=== PATIENT | female | born 1975 | race Caucasian/White ===

== ENCOUNTER 2022-11-05 00:50 | Day surgery (SDC) | payer OTHER, SELFPAY ==
[2022-10-23 16:02] VITALS: BMI 38.7
[2022-11-05 09:41] VITALS: BP 125/77; PULSE 65; RESP 18; TEMP 36.4; O2SAT 100
--- NOTE | 2022-11-05 10:00 | P.PNAN_ITS ---
Anes - Initial Pre Proc Eval Procedure: Operation Date: 11/05/22 11:00 Proposed Procedures p Screening Colonoscopy - Isaiah Nguyễn MD Date/Time: 11/05/22 10:00 Surgeon: Isaiah Nguyễn MD Pre Op Diagnosis: neoplasm screening Patient Data Age: 46 Gender: F Height: 1.78 m Weight: 122.4 kg Last Vital Signs Temp 36.4 C 11/05/22 09:41 Pulse 65 11/05/22 09:41 Resp 18 11/05/22 09:41 BP 125/77 11/05/22 09:41 Pulse Ox 100 11/05/22 09:41 O2 Del Method Room Air 11/05/22 09:41 Allergies Allergy/AdvReac Type Severity Reaction Status Date / Time No Known Allergies Allergy Verified 11/05/22 09:41 Home Medications Medication Instructions Recorded Confirmed Type albuterol sulfate 90 mcg/actuation 1 inh inhalation Q4H PRN Shortness 08/08/20 10/23/22 History aerosol inhaler Of Breath montelukast 10 mg tablet 10 mg PO HS 08/08/20 10/23/22 History (Singulair) cetirizine 10 mg tablet 10 mg PO DAILY 10/23/22 10/23/22 History duloxetine 60 mg capsule,delayed 60 mg PO BID 10/23/22 10/23/22 History release pantoprazole 40 mg tablet,delayed 40 mg PO PRN PRN Acid Reflux 10/23/22 10/23/22 History release topiramate 50 mg tablet 50 mg PO DAILY 10/23/22 10/23/22 History Patient hx anesthesia problems: none Family hx anesthesia problems: none Results Review: All pre-operative results and documents have been reviewed as part of the pre- operative evaluation. [facility] Past Medical History Medical History Depression Seasonal allergic rhinitis Surgical History Surgical History Bariatric surgery status H/O LEEP S/P dilation and curettage Tubal ligation status Family History Family History Grandparent Carcinoma of colon Father Family history of diabetes mellitus in first degree relative Social History Social History Smoking status: Never smoker Second hand tobacco smoke exposure: No Alcohol intake: current Substance use: never Substance use type: does not use Living arrangements: with family Spiritual care concerns: No Anes - Eval Final PreProcedure Day of Procedure 11/05/22 10:00 Patient weight: obese Heart: regular rate and rhythm Lungs: clear to auscultation and normal air movement Airway: Mallampati scale class II Neurological: alert and oriented Last oral intake: >/= 8 hours ASA classification: III Emergent: no Anesthetic plan: proceed Anesthesia type and monitoring: general GIVS Results Review: All pre-operative results and documents have been reviewed as part of the pre- operative evaluation. Informed Consent: The patient's anesthetic plan and its attendant risks and benefits were discussed with the patient/family/POA. Questions were solicited and answers provided to the satisfaction of the patient/family/POA.
[2022-11-05] MEDS: LACTATED RINGERS 1,000 ML 150 ML IV CONT (10:03)
--- NOTE | 2022-11-05 10:21 | PM.HPGS ---
History of Present Illness History of Present Illness Consent: Risks, benefits, and alternatives have been discussed and questions answered. Patient agrees to proceed with procedure. Chief complaint: neoplasm screening Narrative: Kanika Garcia is a 46 year old female here for first screening colonoscopy Review of Systems Constitutional: Constitutional: Denies headache(s) and Denies weakness Eyes: Eyes: Denies blurry vision ENT: Reports Normal hearing present, Denies headache(s) and Denies neck pain Cardiovascular: Cardiovascular: Denies chest pain and Denies dyspnea Respiratory: Respiratory: Denies dyspnea Gastrointestinal: Gastrointestinal: Reports no additional gastrointestinal complaints Genitourinary: Genitourinary: Denies dysuria Musculoskeletal: Musculoskeletal: Denies neck pain Integumentary/Breasts: Skin/Breast: Denies dry skin Neurologic: Reports Normal hearing present, Denies headache(s) and Denies weakness Psychiatric: Psychiatric: Denies anxiety Endocrine: Endocrine: Denies change in body appearance Hematologic/Lymphatic: Hematologic/Lymphatic: Denies easy bleeding Allergic/Immunologic: Allergic/Immunologic: Denies urticaria PMFSH Past Medical History Medical History (Updated 11/05/22 @ 10:22 by Isaiah Nguyễn MD) Colon cancer screening Depression Seasonal allergic rhinitis Surgical History Surgical History Bariatric surgery status H/O LEEP S/P dilation and curettage Tubal ligation status Family History Family History Grandparent Carcinoma of colon Father Family history of diabetes mellitus in first degree relative Social History Social History Smoking status: Never smoker Second hand tobacco smoke exposure: No Alcohol intake: current Substance use: never Substance use type: does not use Living arrangements: with family Spiritual care concerns: No Meds Home Medications and Allergies Home Medications Medication Instructions Recorded Confirmed Type albuterol sulfate 90 mcg/actuation 1 inh inhalation Q4H PRN Shortness 08/08/20 10/23/22 History aerosol inhaler Of Breath montelukast 10 mg tablet 10 mg PO HS 08/08/20 10/23/22 History (Singulair) cetirizine 10 mg tablet 10 mg PO DAILY 10/23/22 10/23/22 History duloxetine 60 mg capsule,delayed 60 mg PO BID 10/23/22 10/23/22 History release pantoprazole 40 mg tablet,delayed 40 mg PO PRN PRN Acid Reflux 10/23/22 10/23/22 History release topiramate 50 mg tablet 50 mg PO DAILY 10/23/22 10/23/22 History Allergies Allergy/AdvReac Type Severity Reaction Status Date / Time No Known Allergies Allergy Verified 11/05/22 09:41 Vital Signs Vital Signs - 24 hr 11/05/22 09:41 Temperature 97.6 F Pulse Rate 65 Respiratory Rate 18 Blood Pressure 125/77 Pulse Oximetry 100 Oxygen Delivery Room Air Exam Const: General: comfortable and no acute distress HENMT: Face/Nose/Sinus: Normal nares present Eyes: General: appearance normal, both eyes and all related structures Neck: Neck: no JVD Resp: Auscultation: clear to auscultation bilaterally Cardio: Rate: regular rate Rhythm: regular rhythm GI: Inspection: non-distended GI Palp: Yes Soft to palpation Skin: General skin exam: normal color Neuro: General: gait normal Speech: normal speech Extrem: General: normal to inspection Psych: Mental Status: mental status grossly normal Assessment and Plan Assessment and plan (1) Colon cancer screening: Code(s): Z12.11 - Encounter for screening for malignant neoplasm of colon Status: Acute Assessment and Plan: colonoscopy
[2022-11-05 10:45] VITALS: BP 113/67; PULSE 65; RESP 18; O2SAT 100
[2022-11-05 10:55] VITALS: BP 116/67; PULSE 60; RESP 16; O2SAT 100
[2022-11-05 11:05] VITALS: BP 123/77; PULSE 65; RESP 16; O2SAT 100
== END 2022-11-05 11:16 | disposition home or self-care (01) ==
PROVIDERS: Visit Provider Internal Medicine Gastroenterology
PROC: 0DJD8ZZ Inspection of Lower Intestinal Tract, Via Natural or Artificial Opening Endoscopic (ICD-10-PCS; CPT 45378; principal; 2022-11-05 11:00)
DX: Z12.11 Encounter for screening for malignant neoplasm of colon (principal); K64.8 Other hemorrhoids; Z79.51 Long term (current) use of inhaled steroids; F32.A Depression, unspecified; Z98.84 Bariatric surgery status; E66.9 Obesity, unspecified; Z68.38 Body mass index [BMI] 38.0-38.9, adult
CPT/HCPCS: 45378; J2704; J7120

== ENCOUNTER 2024-04-13 15:41 | Outpatient (CLI) | payer OTHER, SELFPAY ==
--- NOTE | ~2024-04-13 | US_ITS ---
US pelvic complete w TV Ordering provider: Elsa Bryant APRN History: . R87.764 - Unspecified abnormal cytological findings in sp... . Comparison: None. Technique: Transabdominal and endovaginal ultrasound of the pelvis (Doppler ultrasound interrogation techniques used as needed for this exam.) FINDINGS: CERVIX: Normal. UTERUS: Measures 6.7x 4x 5.3 cm in length which is within normal limits and is anteverted. No myomet rial masses. ENDOMETRIUM: Normal in thickness measuring 5 mm. (Note: the premenopausal endometrium may measure up to 16 mm when in the secretory phase.) No endometrial masses, cysts or fluid. CUL DE SAC: No free fluid. RIGHT OVARY: Normal in size measuring 1.8x 2.7x 1.7 cm. Normal echotexture. Doppler vascular flow pre sent. LEFT OVARY: Normal in size measuring 2.5x 1.6x 2.4 cm. Normal echotexture. Doppler vascular flow pres ent. ADNEXA: Normal. No mass. IMPRESSION: normal pelvic ultrasound. Reviewed, dictated and finalized at location A. IMPRESSION: normal pelvic ultrasound.
== END 2024-04-13 15:42 ==
LOC: MICIMG 15:41
PROVIDERS: PCP Nurse Practitioner Obstetrics & Gynecology; Visit Provider Nurse Practitioner Obstetrics & Gynecology
DX: R87.619 Unspecified abnormal cytological findings in specimens from cervix uteri (principal)
CPT/HCPCS: 76830; 76856

== ENCOUNTER 2024-06-19 04:35 | Day surgery (SDC) | payer OTHER, SELFPAY ==
[2024-06-11 10:53] VITALS: BMI 39.0
--- NOTE | 2024-06-11 10:59 | PC.NURSE ---
Report to the Outpatient Waiting Room, entrance under the green pavilion located off [facility], at time _0600_ on date _[id number]_. Planned Procedure Time: _0730_.? Time changes happen often and if your time is changed the preop area will call you the afternoon before. - You and your visitor will be asked to self-screen and do not enter if you have any COVID symptoms. Please call surgeon if you need to reschedule. - A mask is optional within the hospital at this time. Patients may have clear liquids (water, carbonated beverages, clear teas, apple juice) until 3 hours prior to surgery with a maximum of 20 ounces. - No food from midnight until time of surgery and no smoking Take only the following medications with a SIP of water on the morning of surgery: ____Breo, Rexulti and Topiramate DO NOT STOP ANY OF YOUR OTHER PRESCRIPTION MEDICATIONS PRIOR TO SURGERY EXCEPT THE FOLLOWING Medications to discontinue per physician None Date to take last dose Please no make-up, nail cambodian, hairspray, perfume, deodorant, or body powder the day of surgery.? No jewelry (including any body piercings) or valuables the day of surgery, leave them at home.? Please take a shower or bath the night before, or the morning of, surgery with an antibacterial soap.? Wear comfortable, loose fitting clothing.? - Jewelry must be removed prior to entering the operating room.? Rings and piercings that are not removed may be cut off. - The hospital will not accept responsibility for valuables.? - Please leave all valuables, including medications, at home the day of surgery. If you are going home after surgery, a licensed diesel truck driver must drive you home.? - NO public transportation without another adult if you receive anesthesia. - We recommend that an adult stay with you for 24 hours following discharge. - We also recommend that you do not drive, make important decision, drink alcoholic beverages, or take any drugs that were not prescribed by your health care provider for at least 24 hours after your discharge time. Follow any additional instructions given to you from your surgeon. Telephone instructions given to __Kanika___and asked if any additional questions and then verbalized understanding. Patient advised to call surgeon office or pre surgery nurse liaison [phone] if any additional questions.
[2024-06-19] MEDS: LACTATED RINGERS 1,000 ML 30 ML IV CONT ×2 (06:15→08:00)
[2024-06-19 06:30] VITALS: BP 121/75; PULSE 62; RESP 18; TEMP 36.6; O2SAT 97
[2024-06-19] MEDS: ACETAMINOPHEN 500 MG TABLET 1000 MG PO (06:30)
--- NOTE | 2024-06-19 06:51 | WPDANESEPPF ---
Anes - Initial Pre Proc Eval Procedure: Operation Date: 06/19/24 07:30 Proposed Procedures p Hysteroscopy, Dilation and Curettage with Removal of Any Endometrial Lesions if Necessary - Benny Ahmadi MD Date/Time: 06/19/24 06:51 Surgeon: Benny Ahmadi MD Pre Op Diagnosis: endometrial polyp Patient Data Age: 48 Gender: F Height: 1.78 m Weight: 123.4 kg Allergies Allergy/AdvReac Type Severity Reaction Status Date / Time No Known Allergies Allergy Verified 06/11/24 10:51 Home Medications Medication Instructions Recorded Confirmed Type albuterol sulfate 90 mcg/actuation 1 inh inhalation Q4H PRN Shortness 08/08/20 06/14/24 History aerosol inhaler Of Breath montelukast 10 mg tablet 10 mg PO HS 08/08/20 06/14/24 History (Singulair) cetirizine 10 mg tablet 10 mg PO DAILY 10/23/22 06/14/24 History duloxetine 60 mg capsule,delayed 60 mg PO BID 10/23/22 06/14/24 History release pantoprazole 40 mg tablet,delayed 40 mg PO PRN PRN Acid Reflux 10/23/22 06/14/24 History release topiramate 50 mg tablet 50 mg PO DAILY 10/23/22 06/14/24 History brexpiprazole 0.25 mg tablet 0.25 mg PO DAILY 04/03/24 06/14/24 History (Rexulti) fluticasone furoate 200 1 inh inhalation DAILY 06/11/24 06/11/24 History mcg-vilanterol 25 mcg/dose inhalation powder (Breo Ellipta) Patient hx anesthesia problems: none Family hx anesthesia problems: none Results Review: All pre-operative results and documents have been reviewed as part of the pre-operative evaluation. [facility] Past Medical History Medical History Colon cancer screening Depression Seasonal allergic rhinitis Surgical History Surgical History Bariatric surgery status H/O LEEP S/P dilation and curettage Tubal ligation status Family History Family History Grandparent Carcinoma of colon Father Family history of diabetes mellitus in first degree relative Social History Social History Smoking status: Never smoker Second hand tobacco smoke exposure: No Alcohol intake: current Substance use: never Substance use type: does not use Living arrangements: with family Spiritual care concerns: No Anes - Eval Final PreProcedure Day of Procedure 06/19/24 06:51 Patient weight: obese Heart: regular rate and rhythm Lungs: clear to auscultation Airway: Mallampati scale Neurological: alert and oriented Last oral intake: >/= 8 hours ASA classification: III Emergent: no Anesthetic plan: proceed Anesthesia type and monitoring: general GIVS and standard monitoring Results Review: All pre-operative results and documents have been reviewed as part of the pre-operative evaluation. Asthma, stable of recent. Informed Consent: The patient's anesthetic plan and its attendant risks and benefits were discussed with the patient/family/POA. Questions were solicited and answers provided to the satisfaction of the patient/family/POA.
--- NOTE | 2024-06-19 07:22 | WPDHPUPDATE1 ---
History and Physical Update Update Date/Time: 06/19/24 07:22 History and Physical has been reviewed, including an updated exam of the patient. There are NO changes in the patient's condition. Risks, benefits, and alternatives have been discussed and questions answered. Patient agrees to proceed with procedure.
[2024-06-19] MEDS: ceFAZolin 3 GM/D5W 100 ML 100 ML IVPB (07:33)
[2024-06-19] MEDS: LIDOCAINE HCL 1% LOCAL INJ 20 ML VIAL 10 ML INFILTRATE (07:44)
[2024-06-19 08:00] VITALS: BP 119/76; PULSE 61; RESP 16; O2SAT 96
--- NOTE | 2024-06-19 08:04 | W.PM.PROC2 ---
Procedure Note - Detailed Date of Procedure 06/19/24 Pre-op Diagnosis endometrial polyp Post-op Diagnosis Same Procedure Performed Hysteroscopy with removal of endometrial lesion and dilation and curettage Surgeon Benny Ahmadi MD Anesthesia MAC and Local Indications Endometrial polyp on endometrial biopsy Findings Cavity with possible residual polyp at lower uterine segment. The rest of cavity normal. Description of Procedure After informed consent was obtained patient was taken to the operating room and adequate IV sedation was administered. Attention was turned to the vagina. Speculum was inserted. Single-tooth tenaculum placed on the anterior lip of the cervix.10 cc of 1% lidocaine was injected at the cervical vaginal interface at 2,5, 8 and 10 position. The uterus was sounded to 7 cm. The cervix was dilated to an 5 Quiñonez dilator. The hysteroscope was inserted into the cavity. There was findings of the possibly residual polyp segment at the lower segment. The Aveta instrument was used to remove this lesion. a curettage was then performed. The hysteroscope was removed the single-tooth tenaculum was removed hemostasis was noted with sponge stick pressure application at the tenaculum site. Sponge count correct. The patient taken to recovery in stable condition. Estimated Blood Loss 5 Drains No Packing No Pathology Yes ( shavings and endometrial curettings) Complications No immediate complications Condition Stable Disposition Same day [facility] Billing Surgery - Charge Forward: Surgery Billing
[2024-06-19 08:30] VITALS: BP 119/76; PULSE 61; RESP 20
[2024-06-19 08:50] VITALS: BP 125/82; PULSE 75; RESP 16
== END 2024-06-19 08:55 | disposition home or self-care (01) ==
PROVIDERS: PCP Nurse Practitioner Obstetrics & Gynecology; Visit Provider Obstetrics & Gynecology
PROC: 0U5B8ZZ Destruction of Endometrium, Via Natural or Artificial Opening Endoscopic (ICD-10-PCS; CPT 58563; principal; 2024-06-19 07:30)
DX: N84.0 Polyp of corpus uteri (principal); F32.A Depression, unspecified; Z98.84 Bariatric surgery status; E66.9 Obesity, unspecified; Z68.41 Body mass index [BMI] 40.0-44.9, adult; Z79.51 Long term (current) use of inhaled steroids
CPT/HCPCS: 58558; 88305; A9270; J0690; J2003; J2250; J2704; J3010; J7120